=== PATIENT | female | born 1985 | race Caucasian/White ===

== ENCOUNTER → 2022-04-08 | Outpatient (CLI) | payer BC ==
[2022-04-08 13:07] LABS: BASO # 0.04 K/mm3 (0.02-0.10); EOS # 0.18 K/mm3 (0.04-0.40); EOS % 4.1 % (1.0-5.0); HEMATOCRIT 39.3 % (37.0-47.0); HEMOGLOBIN 13.4 g/dL (12.5-16.0); LYMPH# 1.91 K/mm3 (1.50-4.00); MEAN CELL VOLUME 95 fl (78-100); MEAN CORPUSCULAR HEMOGLOBIN 32 pg (27-31); MEAN CORPUSCULAR HGB CONC 34 g/dL (33-37); MEAN PLATELET VOLUME 10.3 fl (7.4-10.4); NEU # 1.95 K/mm3 (1.40-6.50); PLATELET COUNT 240 K/mm3 (130-400); RED BLOOD COUNT 4.16 M/mm3 (4.10-5.30); RED CELL DISTRIBUTION WIDTH 11.3 % (11.5-14.5); WHITE BLOOD COUNT 4.4 K/mm3 (4.8-10.8)
[2022-04-08 13:24] LABS: ALBUMIN 4.3 g/dL (3.5-5.0)
[2022-04-08 13:25] LABS: CALCIUM 9.1 mg/dL (8.3-10.5)
[2022-04-08 13:26] LABS: TOTAL PROTEIN 7.2 g/dL (6.4-8.3)
[2022-04-08 13:28] LABS: TOTAL BILIRUBIN 0.9 mg/dL (0.2-1.2)
== END ==
LOC: LAB 12:50
PROVIDERS: Internal Medicine
DX: Z00.00 Encounter for general adult medical examination without abnormal findings (principal); Z13.29 Encounter for screening for other suspected endocrine disorder; Z13.220 Encounter for screening for lipoid disorders

== ENCOUNTER 2022-07-03 15:10 | Outpatient (RCR) | payer BC | END 2022-08-01 | disposition home or self-care (01) | LOC: PT | DX: M25.511 Pain in right shoulder (principal) ==

== ENCOUNTER → 2024-01-25 | Outpatient (CLI) | payer BC ==
[~2024-01-25] MED LIST: EPIPEN 2-PAK1 MG/ML MR; PEPCID 20MG TAB20 MG PO; PREDNISONE20 M1 PO
== END ==
LOC: RAD 09:41
DX: J18.1 Lobar pneumonia, unspecified organism (principal)

== ENCOUNTER → 2024-03-28 | Outpatient (CLI) | payer BC ==
[2024-03-28 09:20] LABS: BASO # 0.04 K/mm3 (0.02-0.10); EOS # 0.15 K/mm3 (0.04-0.40); EOS % 4.4 % (1.0-5.0); HEMATOCRIT 40.2 % (37.0-47.0); HEMOGLOBIN 13.6 g/dL (12.5-16.0); LYMPH# 1.61 K/mm3 (1.50-4.00); MEAN CELL VOLUME 96 fl (78-100); MEAN CORPUSCULAR HEMOGLOBIN 32 pg (27-31); MEAN CORPUSCULAR HGB CONC 34 g/dL (33-37); MEAN PLATELET VOLUME 10.3 fl (7.4-10.4); MONO # 0.29 K/mm3 (0.20-0.80); NEU # 1.34 K/mm3 (1.40-6.50); PLATELET COUNT 234 K/mm3 (130-400); RED BLOOD COUNT 4.21 M/mm3 (4.10-5.30); RED CELL DISTRIBUTION WIDTH 11.7 % (11.5-14.5); WHITE BLOOD COUNT 3.4 K/mm3 (4.8-10.8)
[2024-03-28 09:24] LABS: ALBUMIN 4.2 g/dL (3.5-5.0)
[2024-03-28 09:25] LABS: CALCIUM 8.9 mg/dL (8.3-10.5)
[2024-03-28 09:26] LABS: TOTAL PROTEIN 6.7 g/dL (6.4-8.3)
[2024-03-28 09:28] LABS: TOTAL BILIRUBIN 0.8 mg/dL (0.2-1.2)
== END ==
LOC: LAB 09:02
PROVIDERS: Internal Medicine
DX: Z00.00 Encounter for general adult medical examination without abnormal findings (principal); Z13.29 Encounter for screening for other suspected endocrine disorder; Z13.220 Encounter for screening for lipoid disorders; J18.9 Pneumonia, unspecified organism

== ENCOUNTER → 2024-06-02 | Outpatient (CLI) | payer BC ==
[~2024-06-02] MED LIST changes: +LEVOCETIRIZINE D5 MG PO; +SERTRALINE HYD100 MG PO
== END ==
LOC: RAD 11:52
DX: M25.572 Pain in left ankle and joints of left foot (principal)

== ENCOUNTER 2024-06-05 13:00 | Emergency (ER) | payer BC ==
[~2024-06-05] VITALS: Ht 162.6 cm; Wt 63.6 kg
[~2024-06-05 13:00] MED LIST changes: -LEVOCETIRIZINE D5 MG PO; -SERTRALINE HYD100 MG PO
[2024-06-05] MEDS ORDERED: SERTRALINE HYD100 MG PO (13:07)
[2024-06-05] MEDS ORDERED: LEVOCETIRIZINE D5 MG PO (13:07)
[2024-06-05 14:04] LABS: D-DIMER 0.52 mg/L FEU (0.15-0.50)
[2024-06-05 14:40] VITALS: BP 114/81
== END 2024-06-05 15:15 ==
LOC: ED 13:00
PROVIDERS: Physician Assistant
DX: M79.89 Other specified soft tissue disorders (principal); R22.42 Localized swelling, mass and lump, left lower limb
CPT/HCPCS: J1650

== ENCOUNTER → 2024-06-20 | Outpatient (CLI) | payer BC ==
[~2024-06-20] MED LIST changes: +LEVOCETIRIZINE D5 MG PO; +SERTRALINE HYD100 MG PO
[2024-06-20 12:08] LABS: BASO # 0.03 K/mm3 (0.02-0.10); EOS # 0.14 K/mm3 (0.04-0.40); EOS % 1.6 % (1.0-5.0); HEMATOCRIT 42.7 % (37.0-47.0); HEMOGLOBIN 13.8 g/dL (12.5-16.0); LYMPH# 1.95 K/mm3 (1.50-4.00); MEAN CELL VOLUME 96 fl (78-100); MEAN CORPUSCULAR HEMOGLOBIN 31 pg (27-31); MEAN CORPUSCULAR HGB CONC 32 g/dL (33-37); MEAN PLATELET VOLUME 9.8 fl (7.4-10.4); NEU # 6.13 K/mm3 (1.40-6.50); PLATELET COUNT 298 K/mm3 (130-400); RED BLOOD COUNT 4.47 M/mm3 (4.10-5.30); RED CELL DISTRIBUTION WIDTH 12.1 % (11.5-14.5)
[2024-06-20 12:32] LABS: ALBUMIN 4.1 g/dL (3.5-5.0)
[2024-06-20 12:34] LABS: CALCIUM 9.1 mg/dL (8.3-10.5)
[2024-06-20 12:35] LABS: TOTAL PROTEIN 7.9 g/dL (6.4-8.3)
[2024-06-20 12:37] LABS: TOTAL BILIRUBIN 0.5 mg/dL (0.2-1.2)
[2024-06-21 00:31] LABS: COMPLEMENT C3 138 mg/dL (83-193); COMPLEMENT-C4 33 mg/dL (15-57)
[2024-06-21 14:13] LABS: ANA SCREEN with REFLEX Negative (Negative); SJOGRENS SSA 38 U/mL (0-99); SJOGRENS SSB 10 U/mL (0-99)
== END ==
LOC: LAB 11:49
PROVIDERS: Student in an Organized Health Care Education/Training Program
DX: M25.50 Pain in unspecified joint (principal)